=== PATIENT | female | born 1935 | race Caucasian/White ===

== ENCOUNTER → 2016-10-09 | Outpatient (CLI) | payer MEDICARE, BC ==
[~2016-10-09] MED LIST: CARAFATE1 GM PO; CATAPRES0.1 MG PO; CENTRUM SILVER1 EAC4 PO; CIPRO500 MG PO; CORDARONE,PACE200 MG PO; COUMADIN ** IA5 MG PO; CPAP INH; DELTASONE1 MG PO; DELTASONE20 MG PO; DELTASONE5 MG PO; FEOSOL325 MG PO; FOLIC ACID1 MG PO; GLUCOPHAGE850 MG PO; GLUCOSAMINE HC500 MG PO; IMURAN50 MG PO; LASIX40 MG; LASIX40 MG PO; LEVEMIR FL100 UNIT/1 SUB-Q; LEVOTHROID (S100 MCG PO; LOPRESSOR25 MG PO; LOVENOX 8080 MG/0.8 SUB-Q; LYRICA300 MG PO; MAG-OX-400(241400 MG PO; METHOTREXATE2.5 MG PO; MUCINEX600 MG PO; NEURONTIN300 MG PO; NORVASC10 MG PO; NOVOLOG100 UNIT/M SUB-Q; OPTIFLEX-C400 MG PO; OSCAL + D500 MG PO; OXYGEN M-15 NS; POTASSIUM CHLO20 ME1 PO; PROTONIX40 MG PO; PROVENTIL2 MG INH; PROVENTIL2.5 MG/0.5; SINGULAIR10 MG PO; ULTRAM50 MG PO; VITAMIN B-12500 MCG PO; XARELTO15 MG PO; [UNRECOGNIZED DRUG - OTHER] PO
[2016-10-09 14:40] LABS: ALBUMIN 3.5 gm/dL (3.5-5.0); ALK PHOS 60 IU/L (33-138); ALT 44 IU/L (12-78); AST 26 IU/L (10-40); TOTAL BILIRUBIN 0.4 mg/dL (0.0-1.5); TOTAL PROTEIN 6.7 g/dL (6.0-8.4)
[2016-10-09 17:55] LABS: ALBUMIN 3.6 gm/dL (3.5-5.0); ANION GAP 14.8 (10.0-19.0); CALCIUM 8.6 mg/dL (8.5-10.5); CREATININE 1.6 mg/dL (0.5-1.1); MAGNESIUM 2.2 mg/dL (1.8-2.6); PHOSPHORUS 3.9 mg/dL (2.5-4.9); POTASSIUM 4.8 mMol/L (3.7-5.1)
== END ==
LOC: LCNC 14:19
PROVIDERS: Internal Medicine Interventional Cardiology
DX: Z79.899 Other long term (current) drug therapy (principal)